=== PATIENT | male | born 1945 | race Caucasian/White ===

== ENCOUNTER 2017-04-08 05:47 | Day surgery (SDC) | payer MEDICARE ==
[2017-04-08] MEDS ORDERED: PROPARACAINE 0.5% OPHTH SOL 15 ML BTTL ONE (05:54)
[2017-04-08] MEDS ORDERED: TROP 1%/CYCLOPEN 1%/PHENYL 2% DROPS ONE (05:54)
[2017-04-08] MEDS ORDERED: MIDAZOLAM INJ 2 MG/2 ML VIAL ONE (11:24)
[2017-04-08] MEDS ORDERED: LIDOCAINE 1% PF 2 ML AMP INJ ONE (12:22)
[2017-04-08] MEDS ORDERED: TOBRAMYCIN SULF 0.3 % OPHT SOL 1 DROP LEFT_EYE ONE ×2 (12:27→12:41)
[2017-04-08] MEDS ORDERED: DEXAMETHASONE 0.1% OPHTH SOL 1 DROP LEFT_EYE ONE ×2 (12:27→12:41)
[2017-04-08] MEDS ORDERED: BRIMONIDINE 0.2% OPHTH DROPS LEFT_EYE ONE ×2 (12:28→12:41)
[2017-04-09 07:26] VITALS: BP 113/77; TEMP 98.9; O2SAT 96
== END 2017-04-08 13:40 | disposition home or self-care (01) ==
LOC: AMB 05:47
PROVIDERS: ATTEND Ophthalmology
DX: H25.12 Age-related nuclear cataract, left eye (principal); I10 Essential (primary) hypertension; I25.10 Atherosclerotic heart disease of native coronary artery without angina pectoris; K21.9 Gastro-esophageal reflux disease without esophagitis; E66.9 Obesity, unspecified; Z95.1 Presence of aortocoronary bypass graft; Z79.01 Long term (current) use of anticoagulants; Z79.899 Other long term (current) drug therapy
CPT/HCPCS: 00142; 66984; J2250

== ENCOUNTER 2017-04-22 05:40 | Day surgery (SDC) | payer MEDICARE ==
[2017-04-22] MEDS ORDERED: TROP 1%/CYCLOPEN 1%/PHENYL 2% DROPS ONE (05:50)
[2017-04-22] MEDS ORDERED: MIDAZOLAM INJ 2 MG/2 ML VIAL ONE ×2 (07:12→10:14)
[2017-04-22] MEDS: PROPARACAINE 0.5% OPHTH SOL 15 ML BTTL ONE ×2 (09:27→10:04)
[2017-04-22] MEDS: TOBRAMYCIN SULF 0.3 % OPHT SOL 1 DROP RIGHT_EYE ONE ×2 (09:27→10:17)
[2017-04-22] MEDS ORDERED: LIDOCAINE 1% PF 2 ML AMP INJ ONE (10:10)
[2017-04-22] MEDS ORDERED: DEXAMETHASONE 0.1% OPHTH SOL 1 DROP RIGHT_EYE ONE ×2 (10:16→10:27)
[2017-04-22] MEDS ORDERED: BRIMONIDINE 0.2% OPHTH DROPS RIGHT_EYE ONE ×2 (10:17→10:27)
[2017-04-22] MEDS ORDERED: TOBRAMYCIN SULF 0.3 % OPHT SOL 1 DROP RIGHT_EYE ONE (10:27)
[2017-04-22 13:25] VITALS: O2SAT 96
[2017-04-23 07:23] VITALS: BP 134/74; TEMP 97.4
== END 2017-04-22 11:25 | disposition home or self-care (01) ==
LOC: AMB 05:40
PROVIDERS: ATTEND Ophthalmology
DX: H25.11 Age-related nuclear cataract, right eye (principal); I10 Essential (primary) hypertension; I25.10 Atherosclerotic heart disease of native coronary artery without angina pectoris; Z79.01 Long term (current) use of anticoagulants; Z79.82 Long term (current) use of aspirin; Z79.899 Other long term (current) drug therapy
CPT/HCPCS: 00142; 66984; J2250

== ENCOUNTER 2017-08-24 06:41 | Emergency (ER) | payer MEDICARE ==
[2017-08-24] MEDS ORDERED: ONDANSETRON INJ 4 MG/2 ML VIAL IV ONE (06:42)
[2017-08-24] MEDS ORDERED: SODIUM CHLORIDE 0.9% (FLUSH) 10 ML SYG IV PRN (06:42)
[2017-08-24] MEDS ORDERED: ASPIRIN (CHEWABLE) 81 MG TAB PO ONE (06:56)
[2017-08-24] MEDS ORDERED: NITROGLYCERIN 0.4 MG 25 EA TAB SL ONE (06:56)
[2017-08-24] MEDS ORDERED: POTASSIUM CHLORIDE ELIXIR 20 MEQ/15 ML UD PO ONE (07:09)
[2017-08-24] MEDS ORDERED: ALUM & MAG HYDROX-SIMETHICONE 30 ML, LIDOCAINE VISCOUS 2% 15 ML PO ONE ×2 (07:09)
[2017-08-24] MEDS ORDERED: MORPHINE SULFATE INJ 10 MG/ML VIAL IV ONE (07:10)
[2017-08-24] MEDS ORDERED: MAGNESIUM SULFATE PREMIX 2GM 2 GM in PREMIX BAG 1 BAG IVPB ONE (07:10)
[2017-08-24] MEDS ORDERED: LIDOCAINE HCL 2% (MOUTH-THROAT) 15 ML UD ONE (07:12)
[2017-08-24] MEDS ORDERED: ALUM & MAG HYDROX-SIMETHICONE 30 ML UD ONE (07:12)
[2017-08-24] MEDS ORDERED: MAGNESIUM SULFATE PREMIX 2GM 50 ML IVPB ONE (07:20)
--- NOTE | 2017-08-24 07:37 | ED.PDOC ---
History of Present Illness - General Chief Complaint: Chest Pain/AK Stated Complaint: chest pain Time Seen by Provider: 08/24/17 06:55 Source: patient Exam Limitations: no limitations - History of Present Illness Initial Comments: The patient is a 72-year-old male presenting to the emergency room secondary to lower chest pain and mild upper abdominal pain starting this morning around 545. It did not wake him from sleep but as soon as he got up and started hurting. No nausea or vomiting. Pain does radiate to the back. He did become diaphoretic. He took a nitroglycerin and EMS gave him 2 more nitroglycerin which did help with the discomfort. He does take Coumadin. He does not know if he has a history of atrial fibrillation though telemetry monitoring since he currently does. He rates his pain at its worst and a 3 out of 10. After the nitroglycerin for a short period of time it seems to subside. No syncope. He has had a CABG approximately 2 years ago. He denies any known aortic pathology and no known previous pulmonary emboli according to him. The patient was given an aspirin by EMS as well. While this can be a MRI and there is a high index of suspicion for the possibility of aortic pathology. Lovenox is being held at this time. Systolic blood pressures are running around 100 currently so no additional blood pressure medicines are being given. The patient will be sent for CT angiography to help rule out a PE and aortic pathology. EKG does not show any ST elevation AK. He does have diffuse T-wave inversions and flattening. No real ST segment depression. It is atrial fibrillation at a rate of 96 bpm. R-wave progression is borderline. [facility] Timing/Duration: 1-3 hours Severity: moderate Improving Factors: nothing Worsening Factors: nothing Associated Symptoms: malaise, shortness of breath Allergies/Adverse Reactions: Allergies Pregabalin [From Lyrica] Allergy (Verified 04/09/17 07:39) Home Medications: Ambulatory Orders Amlodipine Besylate 5 mg PO DAILY 04/09/17 Aspirin [Aspirin Adult Low Dose] 81 mg PO DAILY 04/09/17 Atorvastatin Calcium [Lipitor] 80 mg PO BEDTIME 04/09/17 Azilsartan Medoxomil [Edarbi] 80 mg PO DAILY 04/09/17 Escitalopram [Lexapro] 10 mg PO DAILY 04/09/17 Hydrocodone-Acetaminophen [Vicodin 5-300 mg] 1 tab PO PRN PRN 04/09/17 LORazepam [Ativan] 1 mg PO BEDTIME 04/09/17 Prednisone 5 mg PO DAILY 04/09/17 Warfarin Sodium [Coumadin] 7.5 mg PO DAILY 04/09/17 Review of Systems - Review of Systems Constitutional: States: diaphoresis, malaise EENTM: States: no symptoms reported Respiratory: States: short of breath - ild Cardiology: States: chest pain Gastrointestinal/Abdominal: States: abdominal pain Genitourinary: States: no symptoms reported Musculoskeletal: States: back pain Skin: States: no symptoms reported Neurological: States: no symptoms reported Endocrine: States: no symptoms reported All other Systems: No Change from Baseline Past Medical History (General) - Patient Medical History Hx Seizures: No Hx Stroke: No Hx Dementia: No Hx Asthma: No Hx of COPD: No Hx Cardiac Disorders: Yes Hx Congestive Heart Failure: No Hx Pacemaker: No Hx Hypertension: Yes Hx Thyroid Disease: No Hx Diabetes: No Hx Gastroesophageal Reflux: No Hx Renal Disease: No Hx Cancer: No Hx of HIV: No Hx Hepatitis C: No Hx MRSA: No Surgical History: coronary bypass surgery, other - Vaccination History Hx Tetanus, Diphtheria Vaccination: No Hx Influenza Vaccination: No Hx Pneumococcal Vaccination: Yes Immunizations Up to Date: No - Social History Hx Tobacco Use: No Hx Chewing Tobacco Use: No Hx Alcohol Use: Yes - 1-2 drinks per week Hx Substance Use: No Hx Substance Use Treatment: No Hx Depression: No Feels Threatened In Home Enviroment: No Feels Threatened In a Relationship: No Hx Physical Abuse: No Hx Emotional Abuse: No Hx Suspected Abuse: No - Activities of Daily Living Hospice Agency (if applicable):: None - Female History Patient is a Female of Child Bearing Age (10 -59 yrs old): No Family Medical History - Family History Mother Family History: Unknown Father Family History: Unknown Physical Exam - Physical Exam General Appearance: Alert, Anxious Eye Exam: bilateral normal Ears, Nose, Throat: hearing grossly normal, normal ENT inspection Neck: full range of motion, supple, normal inspection Respiratory: lungs clear, normal breath sounds, no respiratory distress, no accessory muscle use Cardiovascular/Chest: normal peripheral pulses, no edema, other - regular rate and irregular rhythm Peripheral Pulses: radial,right: 1+, radial,left: 2+, dorsalis pedis,right: 2+, dorsalis pedis,left: 2+, posterior tibialis,right: 2+, posterior tibialis,left: 2+ Gastrointestinal/Abdominal: non tender - with the exception of mild epigastric discomfort. No obvious palpable mass. He is moderately obese., soft Rectal Exam: deferred Back Exam: no CVA tenderness, no vertebral tenderness Extremity: normal range of motion, non-tender, normal inspection, no pedal edema , normal capillary refill Neurologic: pump tender II-XII nml as tested, alert, normal mood/affect, oriented x 3 Skin Exam: normal color Comments: Vital Signs - 24 hr 08/24/17 08/24/17 06:43 06:54 Temperature 97.0 F L Pulse Rate 111 H Pulse Rate [ 111 H Apical] Respiratory 18 Rate Blood Pressure 138/31 [Right Arm] O2 Sat by Pulse 92 L 95 Oximetry Vital Signs - 24 hr 08/24/17 08/24/17 08/24/17 06:43 06:54 07:57 Temperature 97.0 F L Pulse Rate 111 H Pulse Rate [ 111 H 92 H Apical] Respiratory 18 20 Rate Blood Pressure 138/31 126/70 [Right Arm] O2 Sat by Pulse 92 L 95 95 Oximetry Progress - Progress Progress: 08/24/17 08:53 the patient is a 72-year-old male presenting to the emergency room secondary to substernal chest pain starting early this morning. 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 He does take Coumadin but his INR is essentially normal. He did receive an aspirin with EMS. The patient is being placed on a Cardene drip to help keep systolic blood pressures below 120. He did receive a small dose of morphine. The patient is being transferred to [facility] for vascular evaluation an intervention as deemed appropriate. The patient will be transferred by helicopter given the length of the transit. the patient is unable to go to a closer facility secondary to the nature of the dissection. Critical care time spent on management of this patient as well as coordination of care excluding otherwise billable procedures is 45 minutes.. - Results/Orders Results/Orders: CT angiogram of the aorta confirms a type A dissection with some compromise down to the celiac trunk. Final read is pending. See final report for details. telemetry shows atrial fibrillation that is fairly well rate controlled. Laboratory Results - last 24 hr 08/24/17 08/24/17 06:49 06:49 WBC 6.8 RBC 4.62 L Hgb 14.8 Hct 44.0 MCV 95.4 H MCH 32.0 H MCHC 33.6 RDW 15.0 H Plt Count 154 MPV 7.7 Absolute Neuts (auto) 3.70 Absolute Lymphs (auto) 2.10 Absolute Monos (auto) 0.70 Absolute Eos (auto) 0.20 Absolute Basos (auto) 0.10 Neutrophils % 54.1 Lymphocytes % 30.8 Monocytes % 10.8 H Eosinophils % 3.3 Basophils % 1.0 PT 13.6 H INR 1.170 PTT (SP) 29.1 D-Dimer, Quantitative 9552 H* Sodium 140 Potassium 3.3 L Chloride 105 Carbon Dioxide 24 Anion Gap 14.3 BUN 29 H Creatinine 1.48 H BUN/Creatinine Ratio 19.6 Random Glucose 132 H Serum Osmolality 287.1 Calcium 9.3 Magnesium 1.5 L Creatine Kinase 117 CK-MB (CK-2) 2.4 CK-MB (CK-2) % Not Reportable Troponin I < 0.02 B-Natriuretic Peptide 392.0 H* Departure - Departure Clinical Impression: Aortic dissection Qualifiers: Aortic location: thoracoabdominal aorta Qualified Code(s): I71.03 - Dissection of thoracoabdominal aorta Disposition: Transfer to Hospital Condition: Serious Departure Forms: ED Discharge - Pt. Copy, Patient Portal Self Enrollment Home Medications: Ambulatory Orders Amlodipine Besylate 5 mg PO DAILY 04/09/17 Aspirin [Aspirin Adult Low Dose] 81 mg PO DAILY 04/09/17 Atorvastatin Calcium [Lipitor] 80 mg PO BEDTIME 04/09/17 Azilsartan Medoxomil [Edarbi] 80 mg PO DAILY 04/09/17 Escitalopram [Lexapro] 10 mg PO DAILY 04/09/17 Hydrocodone-Acetaminophen [Vicodin 5-300 mg] 1 tab PO PRN PRN 04/09/17 LORazepam [Ativan] 1 mg PO BEDTIME 04/09/17 Prednisone 5 mg PO DAILY 04/09/17 Warfarin Sodium [Coumadin] 7.5 mg PO DAILY 04/09/17 Transfer to Outside Facility - Transfer Information Accepting Provider:: dr brandt Accepting Facility: [facility] Reason for Transfer: required specialist not available
--- NOTE | 2017-08-24 07:44 | RAD ---
Clinical History : chest pains with pain radiating to jaw and neck , MAIN Exam : Portable AP view of the chest 08/24/2017 6:42 AM CDT Comparisons : CT chest with contrast May 22, 2013 Findings : The patient is in lordotic position which accentuates the lung apices and partially obscures evaluation of the lung bases. The lungs are clear without focal consolidation or pleural effusion. The heart is normal in size. The mediastinal contours are normal in appearance. The patient is status post sternotomy and CABG. The thoracic spine is age appropriate. The shoulders are unremarkable. Limited evaluation of the upper abdomen demonstrates no gross abnormalities. Impression: No acute cardiopulmonary disease Electronically signed by: Vianca Okeefe MD 08/24/2017 7:42 AM CDT
[2017-08-24] MEDS ORDERED: niCARdipine HCL 2.5 MG/ML AMP IVPB ONE (08:41)
[2017-08-24] MEDS ORDERED: SODIUM CHLORIDE 0.9% 250ML 250 ML ONE (08:42)
[2017-08-24] MEDS ORDERED: niCARdipine HCL 25 MG in SODIUM CHLORIDE 0.9% 250ML 240 ML IVPB ONE (08:50)
--- NOTE | 2017-08-24 08:55 | CT ---
EXAM: CTA Chest CLINICAL INDICATION: 72-year-old male with elevated d-dimer, chest, abdominal pain and hypotension. COMPARISON: CT chest 05/22/2013. EXAMINATION: CT angiography of the chest, and abdomen was performed following intravenous administration of contrast. Coronal and bilateral oblique maximum intensity projections (MIPS) were created. This exam was performed according to our departmental dose optimization program which includes use of automated exposure control, adjustment of the mA and/or kV according to patient size and/or use of iterative reconstruction technique. FINDINGS: Chest: Evaluation through the lungs reveals no focal opacity, pleural effusion or pneumothorax. There is minimal dependent basilar atelectasis and scarring. The tracheobronchial airways are patent. No significant mediastinal or axillary lymphadenopathy by CT measurement criteria. The osseous structures are within normal limits. CT angiography: A type B aortic dissection is identified extending from the level of the aortic root. The coronary artery ostia are patent with contrast opacifying the visualized coronary arteries within the limitations of noncardiac gated CT examination. The dissection extends along the aortic arch with patent flow of the ostia of the great vessels. The dissection flap continues along the thoracic aorta. The celiac trunk reveals a thin sliver of opacification to the ostia through the dissection flap with minimal volume of contrast within the proximal aspect of the celiac trunk, however the mid to distal celiac trunk and distal arteries reveal poor opacification raising the concern for partial obstruction and poor flow. The distal hepatic arteries are opacified. The distal splenic arteries are less well opacified. The superior mesenteric artery reveals a thin sliver of contrast through to the level of the ostia with patent opacification of the distal vessels. The ostia of the bilateral renal arteries is patent. The RIGHT renal artery is patent to the level of the hilum. The dissection flap continues through the LEFT renal artery with narrowed caliber of the proximal to mid renal artery and distal patent enhancement of the renal hilar vessels. The inferior mesenteric artery extends from the dissection flap and is not clearly opacified. Please note that the pelvis is not included in the [id number] of the examination. The distal structures cannot be evaluated. Limited abdomen: Evaluation of solid organ pathology is limited secondary to arterial phase of contrast. Within these limitations, the following observations are made. Chest: Evaluation through the lung bases reveals no focal opacity, pleural effusion or pneumothorax. Heart size is within normal limits. No pericardial effusion. Abdomen and pelvis: The liver, gallbladder, spleen, bilateral kidneys and bilateral adrenal glands are within normal limits. Diffuse fatty replacement of the pancreas. Cystic type structure of the LEFT kidney measuring up to 36 mm suggestive of a simple renal cyst. The vessels are normal in caliber. No abdominopelvic lymph nodes are noted to be pathologically enlarged by CT measurement criteria. The bowel is within normal limits without abnormal bowel wall thickness or bowel dilation. No free air. No free abdominal fluid collections. The osseous structures are within normal limits. IMPRESSION: 1. Type A aortic dissection requiring immediate cardiothoracic surgical consultation. 2. The celiac trunk reveals a thin sliver of opacification to the ostia through the dissection flap with minimal volume of contrast within the proximal aspect of the celiac trunk, however the mid to distal celiac trunk and distal arteries reveal poor opacification raising the concern for partial obstruction and poor flow. The distal hepatic arteries are opacified. The distal splenic arteries are less well opacified. 3. The superior mesenteric artery reveals a thin sliver of contrast through to the level of the ostia with patent opacification of the distal vessels. 4. The ostia of the bilateral renal arteries is patent. The RIGHT renal artery is patent to the level of the hilum. The dissection flap continues through the LEFT renal artery with narrowed caliber of the proximal to mid renal artery and distal patent enhancement of the renal hilar vessels. 5. The inferior mesenteric artery extends from the dissection flap and is not clearly opacified. 6. Diagnostic pulmonary angiography without findings to suggest pulmonary arterial embolus. 7. The lungs are clear without focal opacity, pleural effusion or pneumothorax. Critical findings were discussed with Dr. Sosa at 0832 hours. Electronically signed by: Nola Fowler MD 08/24/2017 8:53 AM CDT
[2017-08-24 09:03] VITALS: BP 132/71; O2SAT 94
[2017-08-24 09:39] VITALS: TEMP 96.8
== END 2017-08-24 09:41 | disposition short-term general hospital (02) ==
LOC: ER 06:41
DX: I71.03 Dissection of thoracoabdominal aorta (principal); I10 Essential (primary) hypertension; Z95.1 Presence of aortocoronary bypass graft; Z79.01 Long term (current) use of anticoagulants; Z79.82 Long term (current) use of aspirin
CPT/HCPCS: 36415; 71045; 71275; 80048; 82550; 82553; 83880; 84484; 85025; 85379; 85610; 85730; 93005; 94760; J2270; J2405; J3475; J7050